=== PATIENT | female | born 1960 | race Hispanic/Latino ===

== ENCOUNTER → 2020-11-14 | Outpatient (CLI) | payer OTHER | END | disposition home or self-care (01) | LOC: RAH 13:58 | PROVIDERS: ATTEND Nurse Practitioner Adult Health | DX: Z13.6 Encounter for screening for cardiovascular disorders (principal) | CPT/HCPCS: 75571 ==

== ENCOUNTER 2023-02-17 06:40 | Emergency (ER) | payer OTHER ==
[~2023-02-17] VITALS: Ht 160 cm; Wt 73.5 kg
[2023-02-17] MEDS ORDERED: MECL-262 PO (07:00)
[2023-02-17] MEDS ORDERED: CYCL-309 PO (07:09)
[2023-02-17] MEDS ORDERED: NAPR-1180 PO (07:09)
[2023-02-17] MEDS ORDERED: MECLIZINE HCL 25 MG TABLET PO ONE (07:30)
[2023-02-17 07:38] LABS: BASOPHILS % (AUTO) 0.7 % (0.0-5.0); EOSINOPHILS % (AUTO) 3.1 % (0.0-8.0); HEMATOCRIT 35.8 % (36-48); LYMPHOCYTES % (AUTO) 23.1 % (21.0-51.0); MEAN CORPUSCULAR HEMOGLOBIN 27.8 pg (27.0-33.0); MEAN CORPUSCULAR VOLUME 84.4 fL (79-99); MONOCYTES % (AUTO) 6.9 % (3.0-13.0); NEUTROPHILS % (AUTO) 66.1 % (40.0-77.0); PLATELET COUNT (AUTO) 189 K/uL (130-400); RED BLOOD CELL COUNT(AUTO) 4.24 MIL/uL (4.00-5.50); RED CELL DISTRIBUTION WIDTH 12.1 % (11.0-15.5); WHITE BLOOD COUNT (AUTO) 7.1 K/uL (4.8-10.8)
[2023-02-17 07:48] LABS: CREATININE 0.6 mg/dL (0.5-1.5); POTASSIUM 3.8 mmol/L (3.5-5.1)
[2023-02-17 07:53] LABS: ALBUMIN 3.5 g/dL (3.5-5.0); MAGNESIUM 1.8 mg/dL (1.80-2.40)
[2023-02-17 08:01] VITALS: BP 155/64
[2023-02-17 08:21] LABS: B-TYPE NATRIURETIC PEPTIDE 66 pg/mL (0-100)
== END 2023-02-17 08:29 | disposition home or self-care (01) ==
LOC: EDH 06:40
DX: S66.812A Strain of other specified muscles, fascia and tendons at wrist and hand level, left hand, initial encounter (principal); H81.10 Benign paroxysmal vertigo, unspecified ear; E11.9 Type 2 diabetes mellitus without complications; Z98.890 Other specified postprocedural states; X58.XXXA Exposure to other specified factors, initial encounter; Y93.89 Activity, other specified; Y92.89 Other specified places as the place of occurrence of the external cause; Y99.8 Other external cause status
CPT/HCPCS: 36415; 71045; 80053; 83735; 83880; 84484; 85025; 93005